=== PATIENT | male | born 1990 | race Two or more races ===

== ENCOUNTER 2018-09-02 10:29 | Emergency (ER) | payer MEDICAID ==
[~2018-09-02] VITALS: Ht 170.2 cm; Wt 59.0 kg
[~2018-09-02 10:29] MED LIST: ONDA4TAB9 PO; OXYC-530 PO
[2018-09-02] MEDS ORDERED: KETOROLAC TROMETHAMINE 60 MG/2 ML VIAL IM ONE (13:00)
[2018-09-02 13:41] VITALS: BP 116/69
== END 2018-09-02 13:57 | disposition home or self-care (01) ==
LOC: EMS 10:30
DX: J40 Bronchitis, not specified as acute or chronic (principal)
CPT/HCPCS: 71046; 96372; 99283; J1885

== ENCOUNTER 2019-12-26 15:03 | Emergency (ER) | payer MEDICAID ==
[~2019-12-26] VITALS: Ht 170.2 cm; Wt 68.2 kg
[2019-12-26 15:33] VITALS: BP 128/77
== END 2019-12-26 17:01 | disposition home or self-care (01) ==
LOC: EMS 15:10
DX: L03.012 Cellulitis of left finger (principal)

== ENCOUNTER 2024-12-07 22:14 | Emergency (ER) | payer MEDICAID ==
[~2024-12-07] VITALS: Ht 170.2 cm; Wt 76.4 kg
[~2024-12-07 22:14] MED LIST changes: +LEVO-72 PO; -ONDA4TAB9 PO; -OXYC-530 PO
[2024-12-07 22:23] VITALS: TEMP 98.8
[2024-12-07 22:54] LABS: COVID AG,FIA SOURCE NASAL SWAB
[2024-12-07 23:12] LABS: SARS-COV2 (COVID) ANTIGEN,FIA Negative (Negative)
[2024-12-07 23:13] LABS: INFLUENZA TYPE B NEGATIVE FOR TYPE B (NEGATIVE)
[2024-12-07 23:28] LABS: INFLUENZA TYPE A POSITIVE FOR TYPE A (NEGATIVE)
[2024-12-08] MEDS ORDERED: BENZ-227 PO (00:04)
[2024-12-08] MEDS ORDERED: AZIT250T9 PO (00:04)
[2024-12-08 00:08] VITALS: BP 127/80; PULSE 85; RESP 19; O2SAT 98
== END 2024-12-08 00:13 | disposition home or self-care (01) ==
LOC: EMS 22:18
DX: J10.1 Influenza due to other identified influenza virus with other respiratory manifestations (principal); Z87.01 Personal history of pneumonia (recurrent); Z20.822 Contact with and (suspected) exposure to COVID-19
CPT/HCPCS: 71045; 87804; 99284

== ENCOUNTER 2025-01-08 23:06 | Emergency (ER) | payer MEDICAID ==
[~2025-01-08] VITALS: Ht 170.2 cm; Wt 77.3 kg
[~2025-01-08 23:06] MED LIST changes: +BENZ-227 PO
[2025-01-09 02:15] VITALS: BP 123/73; PULSE 73; RESP 16; TEMP 98.2; O2SAT 98
[2025-01-09] MEDS: IBUPROFEN 600 MG TABLET PO ONE (02:22)
== END 2025-01-09 02:44 | disposition home or self-care (01) ==
LOC: EMS 23:09
DX: S93.409A Sprain of unspecified ligament of unspecified ankle, initial encounter (principal); X50.9XXA Other and unspecified overexertion or strenuous movements or postures, initial encounter; Y93.66 Activity, soccer; Y92.89 Other specified places as the place of occurrence of the external cause; Y99.8 Other external cause status
CPT/HCPCS: 29515; 99283